=== PATIENT | female | born 1960 | race Two or more races ===

== ENCOUNTER 2018-06-18 09:21 | Emergency (ER) | payer MEDICAID ==
[~2018-06-18] VITALS: Ht 162.6 cm; Wt 79.4 kg
[~2018-06-18 09:21] MED LIST: CYCLOBENZAPRINE10 MG ORAL; IBUPROFEN600 MG ORAL
[2018-06-18 09:23] VITALS: BP 135/79
[2018-06-18] MEDS ORDERED: NKM (09:27)
[2018-06-18] MEDS ORDERED: Ipratropium 0.02% Inh Soln 2.5ml UD HHN ONE (10:00)
[2018-06-18] MEDS ORDERED: Albuterol ud Inhalation HHN ONE (10:00)
--- NOTE | 2018-06-18 10:17 | Diagnostic Imaging Report ---
Indication: Cough Technique: One view of the chest Comparison: none Findings: No acute infiltrates, effusions, or congestion. Tortuous calcified aorta. Normal heart size. Upper mediastinum unremarkable. Impression: No acute process.
[2018-06-18] MEDS ORDERED: ALBUTEROL SULF8.5 GM INH (10:43)
[2018-06-18] MEDS ORDERED: PREDNISONE20 MG ORAL (10:43)
[2018-06-18] MEDS ORDERED: PROMETHAZI6.25 MG/1 ORAL (10:43)
[2018-06-18 10:51] VITALS: BP 108/70
--- NOTE | 2018-06-18 11:13 | Emergency Room Report ---
History of Present Illness General Chief Complaint: Upper Respiratory Illness Source: Patient Present Illness HPI 58-year-old female presents ED for evaluation of cough, chest tightness. Started yesterday. Cough is dry. Denies fevers or chills. Denies chest pain. Denies history of asthma or smoking. States that she had similar episode about 2 months ago. Was prescribed antibiotics and states that it resolved. States she was told that she had bronchitis. Denies sick contacts or recent travel. No other aggravating or relieving factors. Denies any other associated symptoms Allergies: Coded Allergies: No Known Allergies (Unverified , 10/21/14) Patient History Past Medical History: none Past Surgical History: none Pertinent Family History: none Social History: Denies: smoking, alcohol use, drug use Last Menstrual Period: 10 yrs ago Now: No Immunizations: UTD Reviewed Nursing Documentation: PMH: Agreed; PSxH: Agreed Nursing Documentation-PMH Past Medical History: No Stated History Review of Systems All Other Systems: negative except mentioned in HPI Physical Exam Vital Signs Date Time Temp Pulse Resp B/P (MAP) Pulse Ox O2 Delivery O2 Flow Rate FiO2 06/18/18 09:23 98.3 83 23 135/79 98 Room Air 06/18/18 10:08 21 Sp02 EP Interpretation: reviewed, normal General Appearance: no apparent distress, alert, GCS 15, non-toxic Head: normocephalic, atraumatic Eyes: bilateral eye normal inspection, bilateral eye PERRL ENT: hearing grossly normal, normal pharynx, no angioedema, normal voice Neck: full range of motion, supple/symm/no masses Respiratory: chest non-tender, normal breath sounds, decreased breath sounds, speaking full sentences Cardiovascular #1: regular rate, rhythm, no edema Cardiovascular #2: 2+ carotid (R), 2+ carotid (L), 2+ radial (R), 2+ radial (L) , 2+ dorsalis pedis (R), 2+ dorsalis pedis (L) Gastrointestinal: normal bowel sounds, non tender, soft, non-distended, no guarding, no rebound Rectal: deferred Genitourinary: normal inspection, no CVA tenderness Musculoskeletal: back normal, gait/station normal, normal range of motion, non- tender Neurologic: alert, oriented x3, responsive, motor strength/tone normal, sensory intact, speech normal Psychiatric: judgement/insight normal, memory normal, mood/affect normal, no suicidal/homicidal ideation Reflexes: 3+ bicep (R), 3+ bicep (L), 3+ tricep (R), 3+ tricep (L), 3+ knee (R) , 3+ knee (L) Skin: normal color, no rash, warm/dry, well hydrated Lymphatic: no adenopathy Medical Decision Making Diagnostic Impression: Primary Impression: Bronchitis ER Course Hospital Course 58-year-old female presents to ED complaining of cough, chest tightness Differential diagnoses include: URI, bronchitis, asthma/COPD, pneumonia Clinical course Patient placed on stretcher. After initial history and physical I ordered CXR and nebulizer treatment. Chest x-ray shows no acute infiltrates or consolidations Upon reassessment patient states cough and symptoms have improved. Findings consistent with bronchitis. Discussed findings with patient. Symptoms are viral and disease course a self- limited. Patient will not require antibiotics. We will treat symptoms. Safe for discharge and close outpatient follow-up. Patient states she has a PMD to follow-up with Diagnosis - bronchitis Stable and discharged home with prescriptions for Rx prednisone, promethazine, albuterol. Instructed to followup with PMD. Return to ED if symptoms recur or worsen Chest X-Ray Diagnostic Results Chest X-Ray Diagnostic Results : Chest X-Ray Ordered: Yes # of Views/Limited/Complete: 1 View Indication: Shortness of Breath EP Interpretation: Yes Interpretation: no consolidation, no effusion, no pneumothorax, no acute cardiopulmonary disease Impression: No acute disease Electronically Signed by: Electronically signed by Julio Cesar Ryan MD Last Vital Signs Date Time Temp Pulse Resp B/P (MAP) Pulse Ox O2 Delivery O2 Flow Rate FiO2 06/18/18 10:51 98.0 82 18 108/70 95 Room Air 06/18/18 10:17 21 Status: improved Disposition: HOME, SELF-CARE Condition: Stable Scripts Promethazine Hcl (PROMETHAZINE HCL*) 6.25 Mg/5 Ml Syrup 5 ML ORAL Q8H, #120 ML 0 Refills Prov: Julio Cesar Ryan MD 06/18/18 Albuterol Sulfate* (ALBUTEROL SULFATE MDI*) 8.5 Gm Hfa.aer.ad 2 PUFF INH Q6H, #1 EA 0 Refills Prov: Julio Cesar Ryan MD 06/18/18 Prednisone* (PREDNISONE*) 20 Mg Tablet 40 MG ORAL DAILY, #10 TAB Prov: Julio Cesar Ryan MD 06/18/18 Patient Instructions: Acute Bronchitis, [id number] Julio Cesar Ryan MD Jun 18, 2018 11:13
== END 2018-06-18 10:52 | disposition home or self-care (01) ==
LOC: EMR 10:20
DX: J40 Bronchitis, not specified as acute or chronic (principal)
CPT/HCPCS: 71045; 94640; 99284; J7512

== ENCOUNTER 2018-08-16 16:20 | Emergency (ER) | payer MEDICAID ==
[~2018-08-16] VITALS: Ht 160 cm; Wt 83.9 kg
[~2018-08-16 16:20] MED LIST changes: +ALBUTEROL SULF8.5 GM INH; +NKM; +PREDNISONE20 MG ORAL; +PROMETHAZI6.25 MG/1 ORAL
[2018-08-16] MEDS ORDERED: GLUCOSAMINE1000 M1 PO (16:35)
[2018-08-16] MEDS ORDERED: MULTIVITAMINS1 EAC8 ORAL (16:35)
--- NOTE | 2018-08-16 16:40 | NUR ---
ED Nurse Note: Patient walked into ED from home ambulatory by herself, a/o x4 Patient reports right knee pain for 2 days, patient reports clicking sound when she walks up the stairs.
--- NOTE | 2018-08-16 16:41 | NUR ---
ED Nurse Note: patient denies any injury
--- NOTE | 2018-08-16 17:11 | NUR ---
ED Nurse Note: xrays taken
--- NOTE | 2018-08-16 17:38 | Emergency Room Report ---
History of Present Illness General Chief Complaint: Lower Extremity Injury Source: Patient Present Illness HPI 58-year-old female presents to the emergency department complaining of 7 out of 10 in severity pain localized to the right knee 2 days. Patient reports that she was walking down some stairs and felt a pop 2 days ago. Patient states that she then began to have some swelling and pain. Patient also reports that she feels/hears clicking when bending her right knee. She denies trauma or fall otherwise and denies previous injury to this extremity. Patient states that she is able to bear weight and walk however walking does exacerbate her pain. She states that she had moderate relief with taking ibuprofen. Denies erythema, warmth, or fevers/chills. Denies numbness tingling or loss of sensation or gross motor movements of the extremities, incontinence of bowel or bladder. Denies CP, Palpitations, LOC, AMS, dizziness, Changes in Vision, weakness or a sudden severe headache. Allergies: Coded Allergies: No Known Allergies (Unverified , 10/21/14) Patient History Past Medical History: see triage record Past Surgical History: none Pertinent Family History: none Now: No Reviewed Nursing Documentation: PMH: Agreed; PSxH: Agreed Nursing Documentation-PMH Past Medical History: No Stated History Review of Systems All Other Systems: negative except mentioned in HPI Physical Exam Vital Signs Date Time Temp Pulse Resp B/P (MAP) Pulse Ox O2 Delivery O2 Flow Rate FiO2 08/16/18 16:31 97.3 99 16 109/68 96 Room Air Sp02 EP Interpretation: reviewed, normal General Appearance: no apparent distress, alert, GCS 15, non-toxic Head: normocephalic, atraumatic Eyes: bilateral eye normal inspection, bilateral eye PERRL ENT: hearing grossly normal, normal voice Neck: full range of motion Respiratory: chest non-tender, lungs clear, normal breath sounds, speaking full sentences Cardiovascular #1: regular rate, rhythm Cardiovascular #2: 2+ dorsalis pedis (R) Musculoskeletal: back normal, gait/station normal, normal range of motion, tender - TTP to anterior medial portion of the right knee, no erythema, no warmth, no bruises, mild swelling noted. FROM. Neurologic: alert, oriented x3, responsive, motor strength/tone normal, sensory intact, normal gait, speech normal, grossly normal Psychiatric: judgement/insight normal Skin: normal color, no rash, warm/dry, well hydrated, other - no erythema, no warmth, no bruises, mild swelling noted Lymphatic: no adenopathy Medical Decision Making CAMRYN Attbrandon Galarza is my supervising Physician whom patient management has been discussed with. Diagnostic Impression: Primary Impression: Right knee sprain Qualified Codes: S83.91XA - Sprain of unspecified site of right knee, initial encounter ER Course 58-year-old female presents to the emergency department complaining of 7 out of 10 in severity pain localized to the right knee 2 days. Patient reports that she was walking down some stairs and felt a pop 2 days ago. Patient states that she then began to have some swelling and pain. Patient also reports that she feels/hears clicking when bending her right knee. She denies trauma or fall otherwise and denies previous injury to this extremity. Patient states that she is able to bear weight and walk however walking does exacerbate her pain. She states that she had moderate relief with taking ibuprofen. Denies erythema, warmth, or fevers/chills. Denies numbness tingling or loss of sensation or gross motor movements of the extremities, incontinence of bowel or bladder. Denies CP, Palpitations, LOC, AMS, dizziness, Changes in Vision, weakness or a sudden severe headache. Ddx considered but are not limited to Fracture, dislocation, contusion, Sprain/ Strain/Spasm, Septic Joint, meniscal injury, ligamental tear. Vital signs: are WNL, pt. is afebrile H&PE are most consistent with musculoskeletal injury will perform imaging to r/ o fractures/dislocations. ORDERS: - X-ray Right KNee 3 - negative for fx, Dislocation, or significant soft tissue injury, per preliminary read in ED, and signed by CAMRYN Almonte, my supervising physician has reviewed, and agrees with my interpretation. ED INTERVENTIONS: - Pt. declines pain meds at this time. pt. declines olegario wrap or cane. -I do not identify an emergent condition at this time. With current presentation , pt. is stable for close outpatient follow up and conservative treatment. D/ w pt. to return promptly to ED with worsening or new symptoms.- Pt. verbalizes' understanding and agreement with proposed treatment plan.proposed treatment plan. DISCHARGE: At this time pt. is stable for d/c to home. Will provide printed patient care instructions, and any necessary prescriptions. Care plan and follow up instructions have been discussed with the patient prior to discharge. Other X-Ray Diagnostic Results Other X-Ray Diagnostic Results : X-Ray ordered: Right KNee # of Views/Limited Vs Complete: 3 View Indication: Pain EP Interpretation: Yes PA Xray: Interpretation reviewed, by supervising MD, and agrees with findings. Interpretation: no dislocation, no soft tissue swelling, no fractures Impression: No acute disease Electronically Signed by: Graciela Almonte PA-C Last Vital Signs Date Time Temp Pulse Resp B/P (MAP) Pulse Ox O2 Delivery O2 Flow Rate FiO2 08/16/18 16:31 97.3 99 16 109/68 96 Room Air Disposition: HOME, SELF-CARE Condition: Stable Scripts Acetaminophen* (TYLENOL EXTRA STRENGTH*) 500 Mg Tablet 500 MG ORAL Q6H, #20 TAB 0 Refills Prov: Graciela Almonte 08/16/18 Referrals: [facility] (PCP) Patient Instructions: Knee Sprain Additional Instructions: Take medications as directed. Follow up with an [employer] in 3-5 days, even if your symptoms have resolved. If symptoms persist MRI may be required at the discretion of your PCP or Ortho Specialist. --Please review list of primary care clinics, if you do not already have a primary care provider who can give you an Orthopedic Referral. Return sooner to ED if new symptoms occur, or current symptoms become worse. - Please note that this Emergency Department Report was dictated using [employer] billing coordinator technology software, occasionally this can lead to erroneous entry secondary to interpretation by the dictation equipment. Graciela Almonte Aug 16, 2018 17:38
--- NOTE | 2018-08-16 17:44 | Diagnostic Imaging Report ---
Indication: Knee pain Technique: 3 views of the right knee Comparison: None Findings: No acute fractures. No dislocations. There is degenerative narrowing of the patellofemoral joint. Impression: Patellofemoral degenerative changes. No acute bony trauma
[2018-08-16] MEDS ORDERED: TYLENOL EXTRA500 MG ORAL (17:45)
[2018-08-16 17:59] VITALS: BP 109/68
--- NOTE | 2018-08-16 18:00 | NUR ---
ER DISCHARGE NOTE: Patient is cleared to be discharged per ERMD, pt is aox4, on room air, with stable vital signs. pt was given dc instructions, pt was able to verbalize understanding, pt id band removed pt is able to ambulate with steady gait. pt took all belongings.
== END 2018-08-16 17:58 | disposition home or self-care (01) ==
LOC: EMR 16:57
DX: S83.91XA Sprain of unspecified site of right knee, initial encounter (principal); X50.1XXA Overexertion from prolonged static or awkward postures, initial encounter; Y92.89 Other specified places as the place of occurrence of the external cause
CPT/HCPCS: 99283

== ENCOUNTER 2018-09-17 14:18 | Emergency (ER) | payer MEDICAID ==
[~2018-09-17] VITALS: Ht 162.6 cm; Wt 78.9 kg
[~2018-09-17 14:18] MED LIST changes: +GLUCOSAMINE1000 M1 PO; +MULTIVITAMINS1 EAC8 ORAL; +TYLENOL EXTRA500 MG ORAL
[2018-09-17 15:10] VITALS: BP 131/81
--- NOTE | 2018-09-17 15:22 | Emergency Room Report ---
History of Present Illness General Chief Complaint: General Complaint Source: Patient Present Illness HPI 58-year-old female presents to the emergency department for reevaluation of right knee injury that she sustained one month ago. Patient reports that her pain has resolved she states that this injury occurred at work and in order to return she needs to have a return to work evaluation as well as x-ray patient initially had moderate instability of the right knee joint she denies new trauma or falls denies erythema, swelling, bruising, clicking or instability when walking now. Patient states that her symptoms have for the most part resolved she continues to wear a soft neoprene knee splint however. Other complaints at this time. Was not able to follow up with her PCP. Allergies: Coded Allergies: No Known Allergies (Unverified , 09/17/18) Patient History Past Medical History: see triage record Past Surgical History: none Pertinent Family History: none Last Menstrual Period: menopause Now: No Reviewed Nursing Documentation: PMH: Agreed; PSxH: Agreed Nursing Documentation-PMH Past Medical History: No Stated History Review of Systems All Other Systems: negative except mentioned in HPI Physical Exam Vital Signs Date Time Temp Pulse Resp B/P (MAP) Pulse Ox O2 Delivery O2 Flow Rate FiO2 09/17/18 14:26 97.9 69 16 131/81 95 Room Air Sp02 EP Interpretation: reviewed, normal General Appearance: no apparent distress, alert, GCS 15, non-toxic Head: normocephalic, atraumatic Eyes: bilateral eye normal inspection, bilateral eye PERRL ENT: hearing grossly normal, normal voice Neck: full range of motion Respiratory: lungs clear, normal breath sounds, speaking full sentences Cardiovascular #1: regular rate, rhythm, normal capillary refill Musculoskeletal: back normal, gait/station normal, normal range of motion, other - no increased laxity, no swelling or clicking. no obvious deformity, NVI Neurologic: alert, oriented x3, responsive, motor strength/tone normal, sensory intact, normal gait, speech normal, grossly normal Psychiatric: judgement/insight normal Skin: normal color, no rash, warm/dry, well hydrated Medical Decision Making PA Attestation Dr. winston is my supervising Physician whom patient management has been discussed with. Diagnostic Impression: Primary Impression: Knee pain, right Qualified Codes: M25.561 - Pain in right knee ER Course 58-year-old female presents to the emergency department for reevaluation of right knee injury that she sustained one month ago. Patient reports that her pain has resolved she states that this injury occurred at work and in order to return she needs to have a return to work evaluation as well as x-ray patient initially had moderate instability of the right knee joint she denies new trauma or falls denies erythema, swelling, bruising, clicking or instability when walking now. Patient states that her symptoms have for the most part resolved she continues to wear a soft neoprene knee splint however. Other complaints at this time. Was not able to follow up with her PCP. Ddx considered but are not limited to Fracture, dislocation, contusion, Sprain/ Strain/Spasm. Vital signs: are WNL, pt. is afebrile H&PE are most consistent with musculoskeletal injury will perform imaging to r/ o fractures/dislocations. ORDERS: - X-ray Right knee - negative for fx, Dislocation, or significant soft tissue injury, per preliminary read in ED, and signed by CAMRYN Almonte, my supervising physician has reviewed, and agrees with my interpretation. ED INTERVENTIONS: - NONE DISCHARGE: At this time pt. is stable for d/c to home. Will provide printed patient care instructions, and any necessary prescriptions. Care plan and follow up instructions have been discussed with the patient prior to discharge. Other X-Ray Diagnostic Results Other X-Ray Diagnostic Results : X-Ray ordered: Right KNEE # of Views/Limited Vs Complete: 3 View Indication: Pain EP Interpretation: Yes PA Xray: Interpretation reviewed, by supervising MD, and agrees with findings. Interpretation: no dislocation, no soft tissue swelling, no fractures Impression: No acute disease Electronically Signed by: Graciela Almonte PA-C Last Vital Signs Date Time Temp Pulse Resp B/P (MAP) Pulse Ox O2 Delivery O2 Flow Rate FiO2 09/17/18 15:10 69 16 Room Air 09/17/18 15:10 97.9 131/81 95 Disposition: HOME, SELF-CARE Condition: Stable Referrals: [facility] (PCP) Patient Instructions: Medical Screening Exam Additional Instructions: Take any previously prescribed medications as directed. Follow up with a Primary Care Provider in 3-5 days, even if your symptoms have resolved. --Please review list of primary care clinics, if you do not already have a primary care provider Return sooner to ED if new symptoms occur, or current symptoms become worse. - Please note that this Emergency Department Report was dictated using [email or web address] trailer driver technology software, occasionally this can lead to erroneous entry secondary to interpretation by the dictation equipment. Graciela Almonte Sep 17, 2018 15:22
[2018-09-17 15:51] VITALS: BP 131/81
--- NOTE | 2018-09-17 16:06 | NUR ---
ER DISCHARGE NOTE: Patient is cleared to be discharged per ERMD, pt is aox4, on room air, with stable vital signs. pt was given dc instructions, pt was able to verbalize understanding, pt is able to ambulate with steady gait. pt took all belongings.
--- NOTE | 2018-09-18 19:15 | Diagnostic Imaging Report ---
Indication: Right knee pain 2 views of the right knee were obtained. Findings: No acute fracture, malalignment, or joint effusion are identified. Joint space is relatively well-maintained. There is narrowing and osteophyte formation in all 3 compartments of the knee especially the patellofemoral compartment. The bones are osteopenic. Impression: No acute injury
== END 2018-09-17 16:07 | disposition home or self-care (01) ==
LOC: EMR 14:47
DX: M25.561 Pain in right knee (principal)
CPT/HCPCS: 99283

== ENCOUNTER 2018-09-29 12:15 | Emergency (ER) | payer MEDICAID ==
[~2018-09-29] VITALS: Ht 165.1 cm; Wt 81.6 kg
--- NOTE | 2018-09-29 12:28 | Emergency Room Report ---
History of Present Illness General Chief Complaint: Dyspnea/Respdistress Source: Patient, Medical Record Present Illness HPI Patient presents with severe dyspnea. This began last night. She had some vomiting with the cough. She's had a headache but did not document fever. When this happened before she was told she has bronchitis. This is the worst attack she has had. She denies chest pain or palpitations. She is not producing any sputum of color. She was treated in May here. This was the history. She did not need admission. 58-year-old female presents ED for evaluation of cough, chest tightness. Started yesterday. Cough is dry. Denies fevers or chills. Denies chest pain. Denies history of asthma or smoking. States that she had similar episode about 2 months ago. Was prescribed antibiotics and states that it resolved. States she was told that she had bronchitis. Denies sick contacts or recent travel. No other aggravating or relieving factors. Denies any other associated symptoms Allergies: Coded Allergies: No Known Allergies (Unverified , 09/17/18) Patient History Past Medical History: see triage record Social History: Denies: smoking, alcohol use, drug use Social History Narrative from home Last Menstrual Period: N/A Now: No Reviewed Nursing Documentation: PMH: Agreed; PSxH: Agreed Nursing Documentation-PMH Hx Asthma: No - Bronchitis Review of Systems All Other Systems: negative except mentioned in HPI Physical Exam Vital Signs Date Time Temp Pulse Resp B/P (MAP) Pulse Ox O2 Delivery O2 Flow Rate FiO2 09/29/18 12:20 97.9 104 18 154/90 89 Room Air Sp02 EP Interpretation: reviewed, abnormal - interpreted as low by me General Appearance: alert, GCS 15, mild distress Head: normocephalic Eyes: bilateral eye PERRL, bilateral eye other - arcus ENT: moist mucus membranes Neck: supple Respiratory: respiratory distress, wheezing, expiration, inspiration Cardiovascular #1: regular rate, rhythm Cardiovascular #2: 2+ radial (R) Gastrointestinal: normal inspection, normal bowel sounds, non tender, no mass, non-distended Musculoskeletal: back normal, normal range of motion Neurologic: alert, oriented x3, grossly normal Psychiatric: mood/affect normal Skin: normal inspection, warm/dry Medical Decision Making Diagnostic Impression: Primary Impression: Hypoxia Additional Impression: Bronchospasm ER Course Patient presents with respiratory distress and hypoxia. Differential includes acute myocardial infarction, congestive heart failure, COPD exacerbation, pneumonia and pulmonary embolus amongst others. Clinically pulmonary embolus is less likely. Evaluation will be with EKG, chest x-ray and labs. Patient will be treated with breathing treatments and Solu-Medrol. Also oxygen is administered. Sinus tachycardia right atrial enlargement and nonspecific ST-T wave changes. Chest x-ray without infiltrate. Leukocytosis. Patient improved but still bronchospasm and hypoxia on O2. Antibiotics begun. Wheezing again and O2 low. Repeat albuterol. Magnesium low end of normal. Mg given. Improved again however still with hypoxia. Discussed with Dr. Andres and accepted at [facility]. Laboratory Tests Test 09/29/18 12:30 09/29/18 13:09 White Blood Count 16.4 K/UL (4.8-10.8) H Red Blood Count 5.61 M/UL (4.20-5.40) H Hemoglobin 14.5 G/DL (12.0-16.0) Hematocrit 46.2 % (37.0-47.0) Mean Corpuscular Volume 82 FL (80-99) Mean Corpuscular Hemoglobin 25.9 PG (27.0-31.0) L Mean Corpuscular Hemoglobin Concent 31.5 G/DL (32.0-36.0) L Red Cell Distribution Width 13.7 % (11.6-14.8) Platelet Count 305 K/UL (150-450) Mean Platelet Volume 7.6 FL (6.5-10.1) Neutrophils (%) (Auto) % (45.0-75.0) Lymphocytes (%) (Auto) % (20.0-45.0) Monocytes (%) (Auto) % (1.0-10.0) Eosinophils (%) (Auto) % (0.0-3.0) Basophils (%) (Auto) % (0.0-2.0) Differential Total Cells Counted 100 Neutrophils % (Manual) 93 % (45-75) H Lymphocytes % (Manual) 3 % (20-45) L Monocytes % (Manual) 4 % (1-10) Eosinophils % (Manual) 0 % (0-3) Basophils % (Manual) 0 % (0-2) Band Neutrophils 0 % (0-8) Platelet Estimate Adequate Platelet Morphology Normal Red Blood Cell Morphology Hypochromasia 1+ Prothrombin Time 10.5 SEC (9.30-11.50) Prothrombin Time INR 1.0 (0.9-1.1) PTT 32 SEC (23-33) Sodium Level 137 MMOL/L (136-145) Potassium Level 3.6 MMOL/L (3.5-5.1) Chloride Level 97 MMOL/L (98-107) L Carbon Dioxide Level 28 MMOL/L (21-32) Anion Gap 12 mmol/L (5-15) Blood Urea Nitrogen 8 mg/dL (7-18) Creatinine 0.5 MG/DL (0.55-1.30) L Estimate Glomerular Filtration Rate > 60 mL/min (>60) Glucose Level 148 MG/DL (74-106) H Lactic Acid Level 1.50 mmol/L (0.4-2.0) Calcium Level 9.6 MG/DL (8.5-10.1) Magnesium Level 1.8 MG/DL (1.8-2.4) Total Bilirubin 0.3 MG/DL (0.2-1.0) Aspartate Amino Transferase (AST) 17 U/L (15-37) Alanine Aminotransferase (ALT) 18 U/L (12-78) Alkaline Phosphatase 114 U/L (46-116) Total Creatine Kinase 60 U/L (26-308) Troponin I 0.038 ng/mL (0.000-0.056) Pro-B-Type Natriuretic Peptide 425 pg/mL (0-125) H Total Protein 8.4 G/DL (6.4-8.2) H Albumin 3.7 G/DL (3.4-5.0) Globulin 4.7 g/dL Albumin/Globulin Ratio 0.8 (1.0-2.7) L Urine Color Yellow Urine Appearance Clear Urine pH 5 (4.5-8.0) Urine Specific [place] 1.025 (1.005-1.035) Urine Protein 4+ (NEGATIVE) H Urine Glucose (UA) Negative (NEGATIVE) Urine Ketones 3+ (NEGATIVE) H Urine Blood 5+ (NEGATIVE) H Urine Nitrite Negative (NEGATIVE) Urine Bilirubin Negative (NEGATIVE) Urine Urobilinogen Normal MG/DL (0.0-1.0) Urine Leukocyte Esterase 1+ (NEGATIVE) H Urine RBC 10-15 /HPF (0 - 2) H Urine WBC 0-2 /HPF (0 - 2) Urine Squamous Epithelial Cells Few /LPF (NONE/OCC) Urine Bacteria Few /HPF (NONE) Microbiology Date/Time Source Procedure Growth Status 09/29/18 12:30 Nasal Nares Influenza Types A,B Antigen (MONSERRAT) - Final Complete EKG Diagnostic Results Rate: tachycardiac Rhythm: NSR ST Segments: no acute changes - SANNA Rhythm Strip Diag. Results EP Interpretation: yes Rhythm: no PVC's, no ectopy, other - ST Chest X-Ray Diagnostic Results Chest X-Ray Diagnostic Results : Chest X-Ray Ordered: Yes # of Views/Limited/Complete: 1 View Indication: Shortness of Breath EP Interpretation: Yes Interpretation: no consolidation, no effusion, no pneumothorax Impression: No acute disease Electronically Signed by: Electronically signed by Alex Kerns MD Last Vital Signs Date Time Temp Pulse Resp B/P (MAP) Pulse Ox O2 Delivery O2 Flow Rate FiO2 09/29/18 16:35 97.9 124 25 139/77 90 Nasal Cannula 5.0 09/29/18 15:48 28 Status: improved Disposition: XFER S[facility]M HOSP Condition: Serious Alex Kerns MD Sep 29, 2018 12:28
[2018-09-29] MEDS ORDERED: Ipratropium 0.02% Inh Soln 2.5ml UD HHN ONE (12:30)
[2018-09-29] MEDS ORDERED: Solu-MEDROL 125mg Inj IVP ONE (12:30)
--- NOTE | 2018-09-29 12:30 | NUR ---
ED Nurse Note: Pt presents to ED with Respiratory distress since last night with slight CP mid sternal when pt is coughing and breathing 2/10. Pt states she has hx of bronchitis. Audible wheezing noted and intermittent coughing. Pt is AAO x4, ambulatory with labored breathing. 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 Dr Kerns at the bed side.
--- NOTE | 2018-09-29 12:32 | NUR ---
ED Nurse Note: Pt sats down to 80% in room air. Dr Kerns aware and oxygen via nasal cannula at 2LPm applied.
--- NOTE | 2018-09-29 12:35 | NUR ---
ED Nurse Note: RT at the bed side for breathing treatment and CXR done by [employer] tech.
[2018-09-29] MEDS: Albuterol ud Inhalation HHN SCH ×3 (12:39→12:49)
[2018-09-29 12:40] VITALS: BP 154/96
--- NOTE | 2018-09-29 12:46 | NUR ---
ED Nurse Note: Collected blood specimen and flu swab and sent to lab.
[2018-09-29 12:48] LABS: HEMATOCRIT 46.2 % (37.0-47.0); HEMOGLOBIN 14.5 G/DL (12.0-16.0); MEAN CORPUSCULAR VOLUME 82 FL (80-99); PLATELET COUNT 305 K/UL (150-450); RED BLOOD COUNT 5.61 M/UL (4.20-5.40); RED CELL DISTRIBUTION WIDTH 13.7 % (11.6-14.8); WHITE BLOOD COUNT 16.4 K/UL (4.8-10.8)
--- NOTE | 2018-09-29 12:51 | Diagnostic Imaging Report ---
INDICATION: Dyspnea COMPARISON: 08/19/17 FINDINGS: Single frontal view demonstrates a normal cardiomediastinal silhouette. Atherosclerotic vascular disease. The lungs are clear. No pleural effusions. The visualized osseous structures are within normal limits. IMPRESSION: No acute cardiopulmonary disease.
[2018-09-29 12:57] LABS: ANION GAP 12 mmol/L (5-15); BLOOD UREA NITROGEN 8 mg/dL (7-18); CALCIUM 9.6 MG/DL (8.5-10.1); CARBON DIOXIDE 28 MMOL/L (21-32); CHLORIDE 97 MMOL/L (98-107); CREATININE 0.5 MG/DL (0.55-1.30); POTASSIUM 3.6 MMOL/L (3.5-5.1); SODIUM 137 MMOL/L (136-145)
[2018-09-29 13:08] LABS: ALANINE AMINOTRANSFERASE 18 U/L (12-78); ALBUMIN 3.7 G/DL (3.4-5.0); ALBUMIN/GLOBULIN RATIO 0.8 (1.0-2.7); ALKALINE PHOSPHATASE 114 U/L (46-116); ASPARTATE AMINO TRANSFERASE 17 U/L (15-37); BILIRUBIN,TOTAL 0.3 MG/DL (0.2-1.0); CREATINE KINASE 60 U/L (26-308)
--- NOTE | 2018-09-29 13:15 | NUR ---
Jt gallo in EDM - 09/29/18 at 1316 by SYMONE ED Nurse Note: Urine specimen sent to lab. Pt reports feeling better at this time and is ble to cough her phlegm.
--- NOTE | 2018-09-29 13:16 | NUR ---
ED Nurse Note: Urine specimen sent to lab. Pt reports feeling better at this time and is able to cough her phlegm. Noted pt more relaxed and using her cellphone. Will continue to assess.
[2018-09-29 13:23] LABS: APPEARANCE,URINE CLEAR; BILIRUBIN, URINE NEGATIVE (NEGATIVE); GLUCOSE, URINE (UA) NEGATIVE (NEGATIVE); KETONES,URINE 3+ (NEGATIVE); LEUKOCYTE ESTERASE ,URINE 1+ (NEGATIVE); NITRITE,URINE NEGATIVE (NEGATIVE); PH,URINE 5 (4.5-8.0); PROTEIN,URINE 4+ (NEGATIVE); UROBILINOGEN,URINE NORMAL MG/DL (0.0-1.0)
[2018-09-29 13:37] LABS: COLOR,URINE YELLOW
[2018-09-29 14:05] VITALS: BP 138/83
[2018-09-29] MEDS ORDERED: Piperacillin/Tazobactam 3.375 GM in NS 110 ML IVPB ONE (14:15)
[2018-09-29] MEDS ORDERED: Albuterol ud Inhalation HHN ONE (15:15)
--- NOTE | 2018-09-29 15:55 | NUR ---
ED Nurse Note: Report given to Birdie KEE of [facility].
[2018-09-29 15:56] VITALS: BP 139/77
[2018-09-29 16:35] VITALS: BP 139/77
--- NOTE | 2018-10-01 19:26 | Cardiology Report ---
APPROVED REPORT EKG Measurement Heart [id number] Sinus tachycardia Right atrial enlargement Borderline ECG
== END 2018-09-29 16:35 | disposition short-term general hospital (02) ==
LOC: EMR 12:54
DX: R09.02 Hypoxemia (principal); J98.01 Acute bronchospasm
CPT/HCPCS: 36415; 71045; 80053; 81003; 82550; 83605; 83735; 83880; 84484; 85007; 85025; 85610; 85730; 86710; 87040; 93005; 94640; 94664; 96365; 96367; 96368; 96375; 99285; J1956; J2543; J2930